=== PATIENT | male | born 1985 | race Caucasian/White ===

== ENCOUNTER 2017-03-25 10:17 | Observation (INO) | payer OTHER ==
--- NOTE | ~2017-03-25 | EKG ---
PATIENT: JARET JAIMES UNIT #: [id number] Ventricular Rate: 57 BPM Atrial Rate: 57 BPM P-R Interval: 148 ms QRS Duration: 102 ms Q-T Interval: 402 ms QTC Calculation(Bezet): 391 ms P [place]: 12 degrees Calculated R [place]: 60 degrees Calculated T [place]: 19 degrees Diagnosis Line: Sinus bradycardia Diagnosis Line: Otherwise normal ECG Diagnosis Line: When compared with ECG of 25-MAR-2017 10:26, Diagnosis Line: (unconfirmed) Diagnosis Line: Sinus rhythm has replaced Atrial fibrillation Diagnosis Line: Vent. rate has decreased BY 92 BPM Diagnosis Line: Confirmed by LIAM PUTNAM MD ([id number]) on Diagnosis Line: 03/26/2017 10:10:57 AM INTERPRETING : FARRUKH
--- NOTE | ~2017-03-25 | CR72 ---
[facility] A Service of [facility] RADIOLOGY TEXT RESULTS PATIENT: JARET JAIMES LOCATION: [facility] [id number] : 85 UNIT #: [id number] AGE: [address]: Mary Crockett MD SEX: M ORDER DR: [id number] [facility] [address]. [place], [place] [address] [id number] MR#: [id number] Acc #: [id number] NAME: JARET JAIMES : 1985 SEX: M STUDY DATE/TIME: 03/25/2017 11:03 UNIT: A U ROOM: 304 STUDY DESCRIPTION: CR Chest Single View Portable Attending Physician: Clinton Crockett M.D. Ordering Physician: Abhay Hawthorne M.D. Primary Care Physician: No Primary Care Physician MEDICAL IMAGING REPORT This report is preliminary unless electronic signature is present EXAM Portable chest. HISTORY Chest pain and palpitations, onset today. TECHNIQUE Single AP view of the chest was obtained. FINDINGS A single AP portable view of the chest shows both lungs to be clear. The heart is normal in size. The mediastinal contour is normal. No significant bone abnormalities are seen. IMPRESSION Normal portable chest. Dictated by... Tank Herrera M.D. THIS IS AN ELECTRONICALLY VERIFIED REPORT Tank Herrera M.D. at 03/26/2017 9:58 AM JUNAID/armaan TD: 03/25/2017 21:24 JOB #: [id number] MEDICAL IMAGING REPORT Page 1 of 1 COPY
--- NOTE | ~2017-03-25 | EKG ---
PATIENT: JARET JAIMES UNIT #: [id number] Ventricular Rate: 149 BPM Atrial Rate: 178 BPM QRS Duration: 88 ms Q-T Interval: 250 ms QTC Calculation(Bezet): 393 ms Calculated R [place]: 48 degrees Calculated T [place]: 36 degrees Diagnosis Line: Atrial fibrillation with rapid ventricular Diagnosis Line: response Diagnosis Line: Abnormal ECG Diagnosis Line: No previous ECGs available Diagnosis Line: Confirmed by LIAM PUTNAM MD ([id number]) on Diagnosis Line: 03/26/2017 10:04:11 AM INTERPRETING PERFECTO CHADWICK
--- NOTE | ~2017-03-25 | HP ---
Unit #: [id number] #: [id number] Patient: JARET BENITEZ [id number] [facility]. [place], [place] [address] [id number] MR#: [id number] NAME: JARET BENITEZ ROOM: 59590 Age: 32 Sex: M Admission Date: 03/25/2017 : 1985 Attending Physician: Clinton Crockett M.D. Primary Care Physician: No Primary Care Physician HISTORY AND PHYSICAL HISTORY OF PRESENT ILLNESS This is a 32-year-old white male with no known significant health history except takes Zoloft for anxiety/depression, who came to the emergency room after he woke up this morning and after starting his day he started feeling pressure and heart racing and palpating in his chest. He said this persisted and he proceeded to feel weak, lightheaded and short of breath when he was having exertion. He denies any pain up in his neck, bilateral jaws, shoulders, arms or elbow. He has not had any recent fever, chills or cough or illness. He denies any significant amount of intake of caffeine. He drinks occasional alcoholic beverage and had a small drink last night. Occasional marijuana but hasn't done that in a few days. Never been seen by a track helper in the past. In the emergency room, the patient's blood pressure was 97/71, heart rate was 137, respirations 16, temperature 98.1, O2 sat was 97% on room air. His EKG shows atrial fibrillation with rapid ventricular response, ventricular rate 149 beats/minute. Chest x-ray did not show anything acute. Patient was given 20 mg of IV Cardizem and his heart rate is better controlled but he remains in atrial fibrillation. The patient will be admitted for further evaluation and management. According to the patient, he says he has never had any symptoms like this in the past. He said he may feel occasional skipped beats but nothing persisted as this was. PAST MEDICAL HISTORY 1. Denies hypertension, diabetes mellitus, hyperlipidemia. 2. Anxiety/depression and is on Zoloft. 3. Nicotine abuse. 4. Occasional alcohol use, only socially. 5. Occasional marijuana use. 6. No stress or cardiac cath in the past. PAST SURGICAL HISTORY Vasectomy. HOME MEDICATIONS Zoloft, dosage and frequency unavailable. ALLERGIES No known drug allergies. SOCIAL HISTORY The patient works in the [employer] department at [employer]. Other than that, he thinks he is active but doesn't do any exercise program. He smokes about Unit #: [id number] #: [id number] Patient: JARET BENITEZ a half pack a day and has been smoking most of his adult life. Drinks occasional social mixed drink. Occasional marijuana but no other illicit drug abuse. REVIEW OF SYSTEMS CONSTITUTIONAL: Denies fever or chills. No recent weight gain or weight loss. HEENT: Denies headache but had some lightheadedness with the palpitations. No visual changes, no hearing changes. CARDIOVASCULAR: Chest pressure, heart racing and palpating. Denies increased lower extremity edema. PULMONARY: Increased shortness of breath with exertion with heart racing. Denies paroxysmal nocturnal dyspnea or orthopnea before. Denies cough. GI: Denies nausea, vomiting, diarrhea or abdominal pain. NEUROLOGICAL: No focal weakness. PHYSICAL EXAMINATION GENERAL: On exam, Mr. Benitez is a 32-year-old white male in no acute respiratory distress. He is awake, alert and oriented. VITAL SIGNS: Currently, his blood pressure is 100/65, his heart rate is 98, respirations 16, afebrile. NECK: Trachea midline. No thyromegaly or lymphadenopathy. Normal carotid upstrokes. No jugular venous distention. HEART: S1, S2. Irregular rate and rhythm. No clicks, murmurs or rubs. LUNGS: Diminished, otherwise clear. ABDOMEN: Slightly obese, soft, nontender. Positive bowel sounds present. EXTREMITIES: Pedal pulses are palpable. No pedal edema. DIAGNOSTIC STUDIES LABORATORY: Glucose is 102, BUN 14, creatinine 0.7, eGFR is 124.9, sodium 140, potassium 4.1, chloride 110, CO2 24, calcium 9.2, magnesium is 1.9, total protein 7.1, albumin 4.2, bili total 0.9, AST 18, ALT 18, alkaline phos. 79. His TSH is 0.70, WBC 10.7, hemoglobin 15.9, hematocrit 47.7 and platelets of 226. Initial cardiac enzymes - CK MB less than 1.0, troponin less than 0.05, INR 0.9. IMAGING: Chest x-ray preliminary report - nothing acute. CARDIOVASCULAR: EKG shows atrial fibrillation with rapid ventricular response, ventricular rate 149 beats/minute, left ventricular hypertrophy, poor R wave progression. IMPRESSION 1. Atrial fibrillation with rapid ventricular response, new onset. 2. Nicotine abuse. 3. Anxiety/depression. 4. Occasional alcohol and marijuana use. PLAN 1. The patient will be admitted for further evaluation and management. 2. Start the patient on a low dose beta ifeoma to try to control heart rate or try to convert (1) . The patient likely just went into atrial fibrillation based on his symptoms. He says he worked two days ago and was feeling fine and yesterday he was feeling fine most of the day just when he got up this morning. He has never had these symptoms in the past. Will anticoagulate the patient with Unit #: [id number] #: [id number] Patient: JARET BENITEZ Lovenox 1 mg/kg subcu b.i.d. at this point and then start on a beta ifeoma to control the rate and possibly convert. 3. Obtain a 2D echo to evaluate LV function of valves. 4. Obtain fasting lipid profile. TSH is normal. 5. On exam, there are no signs or symptoms of unstable angina or acute congestive heart failure. 6. Will continue to monitor cardiac enzymes and EKG for any ischemia. 7. If patient's rhythm is controlled and since he has no symptoms of angina and if his cardiac enzymes are negative, may proceed with possible stress test to further evaluate for ischemic heart disease. 8. Encouraged patient to completely quit smoking. Smoking cessation information provided to patient. 9. Encouraged patient to quit using alcohol and marijuana. 10. Further recommendations pending per Dr. Crockett. Dictated by Sweta OrtegaRMarisa for Clinton Crockett M.D. KELVIN/silvia TD: 03/25/2017 15:11 JOB #: [id number] HISTORY AND PHYSICAL Page 1 of 1 X Viridiana Dozier APRN HISTORY AND PHYSICAL
[2017-03-25 10:58] LABS: BASOPHIL# 0.2 X10e3 (0-0.3); BASOPHIL% 1.9 % (0-2.5); EOSINOPHIL# 0.1 X10e3 (0-0.7); EOSINOPHIL% 1.3 % (0.0-7.0); HEMATOCRIT 47.7 % (38.0-50.0); HEMOGLOBIN 15.9 gm/dL (13.0-16.0); LYMPHOCYTE% 27.8 % (17.0-45.0); MEAN CELL VOLUME 88.8 FL (83-96); MEAN CORPUSCULAR HEMOGLOBIN 29.6 PG (28-34); MEAN CORPUSCULAR HGB CONC 33.4 g/dL (30-36); MEAN PLATELET VOLUME 8.9 FL (6.5-11.5); MONOCYTE# 0.9 X10e3 (0-1.0); MONOCYTE% 8.1 % (3.0-12.0); NEUTROPHIL# 6.5 X10e3 (1.5-7.1); NEUTROPHIL% 60.9 % (40-75); PLATELET COUNT 226 X10e3 (140-420); RED BLOOD COUNT 5.37 X10e (3.90-5.60); RED CELL DISTRIBUTION WIDTH 13.4 % (11.0-15.5); WHITE BLOOD COUNT 10.7 X10e3 (4.0-10.5)
[2017-03-25 10:59] LABS: DIFF IND NO
[2017-03-25 11:09] LABS: POC - CKMB <1.0 ng/mL (0.0-7.9); POC - TROPONIN <0.05 ng/mL (<=0.05)
[2017-03-25 11:14] LABS: INR 0.9; PARTIAL THROMBOPLASTIN TIME 28.2 SECONDS (23.5-31.3); PROTHROMBIN TIME (PATIENT) 10.1 SECONDS (10.0-11.7)
[2017-03-25 11:26] LABS: ALBUMIN SERUM 4.2 g/dL (3.5-5.0); BILIRUBIN, DIRECT 0.1 mg/dL (0.0-0.2); BILIRUBIN,INDIRECT 0.8 mg/dL (0.0-0.9); BILIRUBIN,TOTAL 0.9 mg/dL (0.2-2.0); CALCIUM SERUM 9.2 mg/dL (8.4-10.2); CREATININE SERUM 0.7 mg/dL (0.6-1.4); GLOM FILT RATE Estimated 124.9 mL/min (>60); MAGNESIUM 1.9 mg/dL (1.6-3.0); POTASSIUM 4.1 mmol/L (3.5-5.1); PROTEIN TOTAL SERUM 7.1 g/dL (6.0-8.3)
[2017-03-25 12:57] LABS: POC - CKMB <1.0 ng/mL (0.0-7.9); POC - TROPONIN <0.05 ng/mL (<=0.05)
[2017-03-25 20:01] LABS: %MB 2.1 % (0.0-4.0); MB 1.5 ng/ml
[2017-03-25] MEDS ORDERED: ZOLOFT50 MG PO (23:16)
[2017-03-25 23:54] LABS: %MB 2.2 % (0.0-4.0); MB 1.6 ng/ml
[2017-03-26 05:16] LABS: HEMATOCRIT 42.7 % (38.0-50.0); HEMOGLOBIN 14.2 gm/dL (13.0-16.0); MEAN CELL VOLUME 88.6 FL (83-96); MEAN CORPUSCULAR HEMOGLOBIN 29.4 PG (28-34); MEAN CORPUSCULAR HGB CONC 33.2 g/dL (30-36); RED BLOOD COUNT 4.82 X10e (3.90-5.60); RED CELL DISTRIBUTION WIDTH 13.5 % (11.0-15.5); WHITE BLOOD COUNT 11.7 X10e3 (4.0-10.5)
[2017-03-26 05:52] LABS: BUN/CREATININE RATIO 21.42; CALCIUM SERUM 9.2 mg/dL (8.4-10.2); CREATININE SERUM 0.7 mg/dL (0.6-1.4); GLOM FILT RATE Estimated 124.9 mL/min (>60); POTASSIUM 4.1 mmol/L (3.5-5.1)
[2017-03-26] MEDS ORDERED: TOPROL XL PO (10:17)
[2017-03-26] MEDS ORDERED: ASPIRIN81 MG PO (10:17)
[2017-03-26] MEDS ORDERED: NICOTINE1 EACH TD (10:18)
== END 2017-03-26 11:14 | disposition home or self-care (01) | DRG 310 ==
LOC: CED 10:17 → CEDOF 12:40 → CED 13:25 → CEDOF 13:25 → C3A PCU 18:26 → CEDOF 18:26 → C3A PCU 18:26
PROVIDERS: Emergency Medicine; Internal Medicine Cardiovascular Disease
DX: I48.91 Unspecified atrial fibrillation (principal); I51.7 Cardiomegaly; I08.1 Rheumatic disorders of both mitral and tricuspid valves; F41.9 Anxiety disorder, unspecified; F32.9 Major depressive disorder, single episode, unspecified; F17.200 Nicotine dependence, unspecified, uncomplicated; F12.90 Cannabis use, unspecified, uncomplicated; Z79.899 Other long term (current) drug therapy; Z98.52 Vasectomy status
CPT/HCPCS: 36415; 71010; 80048; 80061; 80076; 82550; 82553; 83735; 84443; 84484; 85025; 85027; 85610; 85730; 93005; 93306; 96361; 96372; 96374; 99285; G0378; J1650